=== PATIENT | male | born 1970 | race Caucasian/White ===

== ENCOUNTER 2024-05-15 19:05 | Emergency (ER) | payer MEDICARE, SELFPAY ==
[2024-05-15] VITALS (12 sets, daily range): BP systolic 81–113; BP diastolic 41–59; PULSE 83–102; RESP 15–24; TEMP 36.9–38.3; O2SAT 94–100; BMI 28.0
--- NOTE | ~2024-05-15 | CT_ITS ---
CLINICAL HISTORY: infection CT chest with contrast Comparison: None Findings: Cardiomegaly without significant pericardial effusion. Coronary artery calcifications. The visualized thyroid and mediastinum are unremarkable. Gynecomastia. Mild emphysema. Bilateral atelectasis with more ill-defined regions of ground-glass attenuation more so along the dependent lungs, left more than right. Trace bilateral effusions. Hepatomegaly with steatosis and cirrhosis. Partially imaged splenomegaly. Nonspecific ill-defined low-density region along the lateral spleen. If clinical concern persists consider follow-up MRI. Osteopenia with diffuse multilevel spondylosis. Chronic appearing multilevel mild superior endplate height loss. No retropulsion. Multilevel Schmorl's nodes. Ascites. IMPRESSION: 1. Mild emphysema. 2. Bilateral atelectasis with more ill-defined regions of ground-glass attenuation more so along the dependent lungs, left more than right. Developing pneumonia not excluded. Attention on follow-up. 3. Trace bilateral effusions. 4. Additional findings as described. This document has been electronically signed by: Juan Hawk MD on 05/16/2024 00:20:15
--- NOTE | ~2024-05-15 | XR_ITS ---
CLINICAL HISTORY: infection,trivedi bite 3 view right foot Comparison: None Findings: No fractures or dislocations. No erosive or resorptive bony changes to suggest acute osteomyelitis. Mild arthritic changes. No ankle effusion. Soft tissue swelling in the great toe. Punctate radiodensity in the superficial distal soft tissues. Tiny calcaneal spurs. IMPRESSION: 1. No acute bony or joint space abnormality. 2. Questionable superficial tiny foreign body in the soft tissues of the distal phalanx of the great toe. This document has been electronically signed by: Olive Ontiveros DO on 05/15/2024 20:59:57
--- NOTE | ~2024-05-15 | XR_ITS ---
CLINICAL HISTORY: cough 1 view chest x-ray Comparison: None Findings: No consolidation, pleural effusion or pneumothorax. Normal size heart. No acute fracture. IMPRESSION: 1. No acute findings. This document has been electronically signed by: Olive Ontiveros DO on 05/15/2024 20:53:50
--- NOTE | ~2024-05-15 | XR_ITS ---
CLINICAL HISTORY: infection 3 view left foot Comparison: None Findings: Bones intact. No dislocations. No erosive or resorptive bony changes to suggest acute osteomyelitis. Normal variant medial hallux sesamoid. Mild arthritic changes. There is an ankle effusion. No radiopaque foreign body. Diffuse soft tissue swelling. No suspicious soft tissue lucency. IMPRESSION: No acute bony or joint space abnormality. This document has been electronically signed by: Olive Ontiveros DO on 05/15/2024 20:57:14
--- NOTE | 2024-05-15 19:17 | ECG_ITS ---
Test Reason : TACARDYA Blood Pressure : */* mmHG Vent. Rate : 97 BPM Atrial Rate : 97 BPM P-R Int : 110 ms QRS Dur : 64 ms QT Int : 336 ms P-R-T Axes : 45 61 50 degrees QTcB Int : 426 ms Sinus rhythm with short MA with Premature supraventricular complexes Otherwise normal ECG No previous ECGs available Referred By: Denise Cherry Electronically Signed By: Clyde Bruno
--- NOTE | 2024-05-15 19:19 | ED.GENADULT ---
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 Patient states he has had cough and cold symptoms x3 days. Denies nausea vomiting diarrhea or abdominal pain. Related Data Allergies Allergy/AdvReac Type Severity Reaction Status Date / Time Penicillins Allergy urticaria Verified 05/15/24 19:23 Review of Systems Review of Systems: Yes all other systems are reviewed and are negative Constitutional: Constitutional: Reports fatigue, Reports fever(s) and Reports malaise Cardiovascular: Cardiovascular: Denies chest pain and Reports dyspnea Respiratory: Respiratory: Reports chest congestion, Reports cough, Reports dyspnea and Reports wheezing Gastrointestinal: Gastrointestinal: Denies abdominal pain, Denies diarrhea, Denies nausea and Denies vomiting Endocrine: Endocrine: Reports fatigue Allergic/Immunologic: Allergic/Immunologic: Reports wheezing PMFSH Past Medical History Attestation statement: The following information was validated with the patient. Social History Social History Advance Directives: No Advance Directives Information Provided: Yes Physical Exam ED Vital Signs: Vital Signs - 24 hr 05/15/24 19:19 05/15/24 19:45 05/15/24 19:51 Temperature 101.0 F H 100.9 F H Pulse Rate 96 92 95 Respiratory Rate 16 18 15 Blood Pressure 111/59 L 110/55 L Pulse Oximetry 97 98 Oxygen Delivery Method Room Air Room Air Oxygen Flow Rate 05/15/24 20:05 05/15/24 20:28 05/15/24 21:03 Temperature 99.1 F Pulse Rate 94 93 Respiratory Rate 22 H 24 H Blood Pressure 84/41 L 97/58 L 90/50 L Pulse Oximetry 98 94 Oxygen Delivery Method Room Air Nasal Cannula Oxygen Flow Rate 05/15/24 21:16 05/15/24 21:32 05/15/24 21:48 Temperature 98.7 F 98.7 F 98.4 F Pulse Rate 89 93 86 Respiratory Rate 20 22 H 21 H Blood Pressure 89/49 L 113/58 L 99/59 L Pulse Oximetry 98 96 100 Oxygen Delivery Method Nasal Cannula Nasal Cannula Nasal Cannula Oxygen Flow Rate 2 2 05/15/24 22:07 05/15/24 22:44 05/16/24 00:27 Temperature 98.4 F 98.6 F Pulse Rate 88 83 76 Respiratory Rate 18 18 16 Blood Pressure 101/59 L 106/58 L 83/51 L Pulse Oximetry 97 96 94 Oxygen Delivery Method Nasal Cannula Nasal Cannula Room Air Oxygen Flow Rate 2 2 05/16/24 01:00 05/16/24 01:29 05/16/24 03:00 Temperature 97.7 F Pulse Rate 82 80 78 Respiratory Rate 18 16 24 H Blood Pressure 100/49 L 93/57 L 92/55 L Pulse Oximetry 98 92 97 Oxygen Delivery Method Room Air Nasal Cannula Nasal Cannula Oxygen Flow Rate 2 2 05/16/24 03:04 05/16/24 03:19 05/16/24 03:34 Temperature 97.8 F Pulse Rate 73 75 78 Respiratory Rate 24 H 20 20 Blood Pressure 91/53 L 91/55 L 91/57 L Pulse Oximetry 98 97 97 Oxygen Delivery Method Nasal Cannula Nasal Cannula Nasal Cannula Oxygen Flow Rate 2 2 2 05/16/24 03:49 05/16/24 04:04 05/16/24 04:34 Temperature Pulse Rate 81 82 80 Respiratory Rate 20 19 17 Blood Pressure 94/55 L 93/61 101/57 L Pulse Oximetry 95 95 97 Oxygen Delivery Method Nasal Cannula Nasal Cannula Nasal Cannula Oxygen Flow Rate 2 2 2 05/16/24 05:06 05/16/24 05:24 05/16/24 05:34 Temperature 97.9 F Pulse Rate 80 79 82 Respiratory Rate 20 17 17 Blood Pressure 87/48 L 85/50 L 89/52 L Pulse Oximetry 97 97 97 Oxygen Delivery Method Nasal Cannula Nasal Cannula Nasal Cannula Oxygen Flow Rate 2 2 2 05/16/24 05:48 05/16/24 05:54 05/16/24 06:00 Temperature 97.6 F Pulse Rate 81 82 78 Respiratory Rate 17 17 Blood Pressure 95/55 L 95/55 L 91/54 L Pulse Oximetry 97 97 Oxygen Delivery Method Nasal Cannula Nasal Cannula Oxygen Flow Rate 2 2 05/16/24 06:00 05/16/24 06:07 05/16/24 06:08 Temperature Pulse Rate 84 84 85 Respiratory Rate 19 Blood Pressure 91/54 L 80/54 L 80/54 L Pulse Oximetry 97 Oxygen Delivery Method Nasal Cannula Oxygen Flow Rate 2 05/16/24 06:12 05/16/24 06:17 05/16/24 06:23 Temperature Pulse Rate 66 83 77 Respiratory Rate 23 H 20 20 Blood Pressure 138/64 95/63 111/65 Pulse Oximetry 98 100 99 Oxygen Delivery Method Nasal Cannula Nasal Cannula Nasal Cannula Oxygen Flow Rate 2 2 2 05/16/24 06:28 05/16/24 06:31 05/16/24 06:39 Temperature Pulse Rate 87 87 89 Respiratory Rate 20 19 20 Blood Pressure 109/69 112/67 104/60 Pulse Oximetry 99 100 97 Oxygen Delivery Method Nasal Cannula Nasal Cannula Nasal Cannula Oxygen Flow Rate 2 2 2 05/16/24 06:42 05/16/24 06:47 05/16/24 06:58 Temperature Pulse Rate 82 86 80 Respiratory Rate 19 20 20 Blood Pressure 118/68 123/64 117/68 Pulse Oximetry 97 97 96 Oxygen Delivery Method Nasal Cannula Nasal Cannula Nasal Cannula Oxygen Flow Rate 2 2 2 05/16/24 07:03 05/16/24 07:34 05/16/24 07:45 Temperature 97.7 F Pulse Rate 89 88 90 Respiratory Rate 20 20 20 Blood Pressure 113/66 114/66 122/70 Pulse Oximetry 97 97 97 Oxygen Delivery Method Nasal Cannula Nasal Cannula Nasal Cannula Oxygen Flow Rate 2 2 2 05/16/24 07:58 05/16/24 08:00 Temperature Pulse Rate 100 88 Respiratory Rate 20 16 Blood Pressure 132/60 124/68 Pulse Oximetry 98 97 Oxygen Delivery Method Nasal Cannula Nasal Cannula Oxygen Flow Rate 2 2 BMI result Body Mass Index 28.0 Const Other: Alert Orientation/consciousness: patient oriented x3 Resp Other: Tachypneic, rhonchorous on exam, faint basilar crackles Cardio Other: Normal peripheral perfusion Skin Other: Warm dry no rash Neuro General: patient oriented x3, gait normal, no focal motor deficits and CN's II-XI intact bilaterally Extrem Other: Gangrene of bilateral feet, left greater than right secondary to frostbite Psych Other: Cooperative Course Course Course Narrative: 05/16/24 11:40 Received call from lab that 1/2 sets of blood cultures positive for gram + cocci in chains. Notified RN at [facility] via telephone of results. Reevaluation(s) Reevaluation #1: Concern for sepsis ... Patient was hypotensive, febrile, coming in with cough and cold symptoms and new hypoxia. In addition to screening labs blood cultures and a lactic acid we will be obtained. Giving weight based IV fluid, starting empiric ceftriaxone Time: 19:19 Reevaluation #2: Despite weight based IV fluid therapy, the patient's pressures remains soft, starting albumin Reevaluation #3: Pressures improved after 2 units of albumin, his map is variable, we will give an additional 2 units Additional Reevaluation(s): He is maintaining pressures within the 90s, with maps above 65, he can be admitted he does not require transfer... He is up and ambulatory now, Consultations Consultation #1: DR. Daugherty's note: patient is AAO x3 require Levophed IV drip blood pressure has been stable on Levophed, no ICU bed available at [facility], case discussed with Dr. Cain at [facility] accepted the patient to ICU. Time: 06:54 Medications Administered Generic Name Dose Route Start Last Admin Trade Name Freq PRN Reason Stop Dose Admin Norepinephrine Bitartrate 8 mg in 250 mls @ 0 mls/hr 05/16/24 05:30 05/16/24 06:08 Levophed IVCONT 0.11 mcg/kg/min .Q0M KRYS 15.74 mls/hr Titration Protocol Per Protocol Discontinued Medications Generic Name Dose Route Start Last Admin Trade Name Freq PRN Reason Stop Dose Admin Ceftriaxone Sodium 2 gm 05/15/24 19:17 05/15/24 19:35 Ceftriaxone Sodium 2 Gm Vial IVPUSH 05/15/24 19:18 2 gm ONCE ONE Administration Albuterol Sulfate 2.5 mg/ 0 mg 05/15/24 19:49 05/15/24 19:51 Albuterol/Ipratropium 3 ml INHALE 05/15/24 19:50 1 dose ONCE ONE Administration Sodium Chloride 1,000 mls @ 999 mls/hr 05/15/24 19:30 05/15/24 20:35 Ns IV 05/15/24 20:30 Infused .Q1H1M KRYS Infusion Azithromycin 500 mg/ Sodium 250 mls @ 125 mls/hr 05/15/24 19:31 05/15/24 22:00 Chloride IV 05/15/24 21:30 Infused ONCE ONE Infusion Sodium Chloride 1,000 mls @ 999 mls/hr 05/15/24 20:30 05/15/24 21:16 Ns IV 05/15/24 21:30 Infused .Q1H1M KRYS Infusion Lactated Ringer's 1,000 mls @ 999 mls/hr 05/15/24 20:45 05/15/24 21:16 Lr IV 05/15/24 21:45 Infused .Q1H1M KRYS Infusion Albumin Human 100 mls @ 133.333 mls/hr 05/15/24 23:45 05/16/24 01:18 Kedbumin 25 % IV 05/16/24 01:29 Infused Q1H KRYS Infusion Albumin Human 100 mls @ 133.333 mls/hr 05/16/24 01:45 05/16/24 04:14 Kedbumin 25 % IV 05/16/24 03:29 Infused Q1H KRYS Infusion Iohexol 65 ml 05/15/24 23:35 05/15/24 23:35 Iohexol 350 Mg/Ml 100 Ml Infus..Btl IV 05/15/24 23:36 65 ml ONCE ONE Administration Ketorolac Tromethamine 15 mg 05/15/24 19:21 05/15/24 19:35 Ketorolac Tromethamine 15 Mg/Ml Vial IVPUSH 05/15/24 19:22 15 mg ONCE ONE Administration Methylprednisolone Sodium Succinate 125 mg 05/15/24 19:28 05/15/24 19:47 Methylprednisolone Sod Succ 125 Mg/2 Ml Vial IVPUSH 05/15/24 19:29 125 mg ONCE ONE Administration Medical Decision Making Medical Decision Making MDM Narrative: 53-year-old male with a history of depression, schizophrenia, 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 Patient states he has had cough and cold symptoms x3 days. Denies nausea vomiting diarrhea or abdominal pain. Problem: Cirrhosis, psychiatric illness History: Per patient I have considered the following differential diagnoses: Sepsis, osteomyelitis, UTI, bronchitis, pneumonia, SBP Plan:Concern for sepsis ... Patient was hypotensive, febrile, coming in with cough and cold symptoms and new hypoxia. In addition to screening labs blood cultures and a lactic acid we will be obtained. Giving weight based IV fluid, starting empiric ceftriaxone. I do believe respiratory pathology we will be the cause for his sepsis, given new hypoxia nature of his exam. We will still screened for other sources, including the feet. We will obtain x-rays. Thought about SBP, however the patient does not have any abdominal pain, no active GI symptoms. labs: No leukocytosis, left shift noted, not anemic, sodium low at 127, bicarb low at 20, lactic is 2.8, repeat lactic is 1.4, viral panel negative, urine not infected CXR: Findings: No consolidation, pleural effusion or pneumothorax. Normal size heart. No acute fracture. IMPRESSION: 1. No acute findings. This document has been electronically signed by: Olive Ontiveros DO on 05/15/2024 20:53:50 L foot: MPRESSION: No acute bony or joint space abnormality. This document has been electronically signed by: Olive Ontiveros DO on 05/15/2024 20:57:14 R foot: MPRESSION: 1. No acute bony or joint space abnormality. 2. Questionable superficial tiny foreign body in the soft tissues of the distal phalanx of the great toe. This document has been electronically signed by: Olive Ontiveros DO on 05/15/2024 20:59:57 CT chest: IMPRESSION: 1. Mild emphysema. 2. Bilateral atelectasis with more ill-defined regions of ground-glass attenuation more so along the dependent lungs, left more than right. Developing pneumonia not excluded. Attention on follow-up. 3. Trace bilateral effusions. 4. Additional findings as described. This document has been electronically signed by: Juan Hawk MD on 05/16/2024 00:20:15 Lab Data 05/15/24 19:31 05/15/24 19:31 Labs: Lab Results 05/15/24 05/15/24 05/15/24 Range/Units 19:31 19:40 19:46 WBC 9.1 (4.8-10.8) X10*3/uL RBC 3.53 L (4.60-5.80) X10*6/uL Hgb 10.6 L (14.0-18.0) g/dl Hct 30.1 L (42.0-52.0) % MCV 85.3 (80.0-98.0) fL MCH 30.0 (27.0-33.0) pg MCHC 35.2 (31.0-36.0) g/dl RDW 13.8 (11.0-16.0) % Plt Count 121 L (160-400) X10*3/uL MPV 9.9 (9.4-12.4) fL Immature Gran % (Auto) 1.1 H (0.0-0.4) % Neut % (Auto) 89.7 H (45-73) % Lymph % (Auto) 3.4 L (20-40) % Taylor % (Auto) 5.7 (2-11) % Eos % (Auto) 0.0 (0-4) % Baso % (Auto) 0.1 (0-2) % Lymph # (Auto) 0.3 L (1.2-4.9) X10*3/uL Taylor # (Auto) 0.5 (0.1-1.2) X10*3/uL Eos # (Auto) 0.0 (0.0-0.4) X10*3/uL Baso # (Auto) 0.0 (0.0-0.2) X10*3/uL Abs Immat Gran (auto) 0.10 H (0.00-0.03) X10*3/uL Absolute Neuts (auto) 8.2 (2.0-8.3) x10*3/uL Absolute Nucleated RBC 0.000 (0.0-0.012) X10*3/uL Nucleated RBC % (auto) 0.0 (0.0-0.2) /100WBC VBG pH 7.40 (7.32-7.43) VBG pCO2 32 mmHg VBG pO2 30 mmHg VBG HCO3 20 L (22-26) mmol/L VBG O2 Saturation 45.0 % VBG Base Excess -3.3 mmol/L Sodium 127 L (135-145) mmol/L Potassium 4.0 (3.3-5.1) mmol/L Chloride 98 (96-108) mmol/L Carbon Dioxide 20 L (22-29) mmol/L Anion Gap 13 (12-20) BUN 19 H (9-16) mg/dL Creatinine 0.98 (0.5-1.4) mg/dL Estim Creat Clear Calc 82.1 Estimated GFR > 60 Random Glucose 138 H (60-115) mg/dL Lactic Acid 2.8 H* (0.5-2.0) mmol/L Lactic Acid F/U @ 2Hr (0.5-2.0) mmol/L Calcium 8.6 (8.4-10.2) mg/dL Magnesium 2.0 (1.6-2.6) mg/dL Total Bilirubin 0.6 (0.0-1.0) mg/dL AST 50 H (5-37) U/L ALT 46 H (0-40) U/L Alkaline Phosphatase 153 H (39-117) U/L Total Protein 6.5 (6.5-8.0) g/dL Albumin 3.4 L (3.5-5.0) g/dL Lipase 44 (8-78) U/L Urine Color Yellow Urine Appearance Clear Urine pH 6.0 (5.0-9.0) Ur Specific Troy 1.010 (1.005-1.025) Urine Protein Negative (Neg-Trace) mg/dL Urine Glucose (UA) Negative (Negative) mg/dL Urine Ketones Negative (Negative) mg/dL Urine Blood Negative (Negative) Urine Nitrite Negative (Negative) Ur Leukocyte Esterase Negative (Negative) Influenza Type A (PCR) NEGATIVE (Negative) Influenza Type B (PCR) NEGATIVE (Negative) RSV RNA Qual (PCR) NEGATIVE (Negative) SARS-CoV-2 RNA (RT-PCR) NEGATIVE (Negative) 05/15/24 Range/Units 21:45 WBC (4.8-10.8) X10*3/uL RBC (4.60-5.80) X10*6/uL Hgb (14.0-18.0) g/dl Hct (42.0-52.0) % MCV (80.0-98.0) fL MCH (27.0-33.0) pg MCHC (31.0-36.0) g/dl RDW (11.0-16.0) % Plt Count (160-400) X10*3/uL MPV (9.4-12.4) fL Immature Gran % (Auto) (0.0-0.4) % Neut % (Auto) (45-73) % Lymph % (Auto) (20-40) % Taylor % (Auto) (2-11) % Eos % (Auto) (0-4) % Baso % (Auto) (0-2) % Lymph # (Auto) (1.2-4.9) X10*3/uL Taylor # (Auto) (0.1-1.2) X10*3/uL Eos # (Auto) (0.0-0.4) X10*3/uL Baso # (Auto) (0.0-0.2) X10*3/uL Abs Immat Gran (auto) (0.00-0.03) X10*3/uL Absolute Neuts (auto) (2.0-8.3) x10*3/uL Absolute Nucleated RBC (0.0-0.012) X10*3/uL Nucleated RBC % (auto) (0.0-0.2) /100WBC VBG pH (7.32-7.43) VBG pCO2 mmHg VBG pO2 mmHg VBG HCO3 (22-26) mmol/L VBG O2 Saturation % VBG Base Excess mmol/L Sodium (135-145) mmol/L Potassium (3.3-5.1) mmol/L Chloride (96-108) mmol/L Carbon Dioxide (22-29) mmol/L Anion Gap (12-20) BUN (9-16) mg/dL Creatinine (0.5-1.4) mg/dL Estim Creat Clear Calc Estimated GFR Random Glucose (60-115) mg/dL Lactic Acid (0.5-2.0) mmol/L Lactic Acid F/U @ 2Hr 1.4 (0.5-2.0) mmol/L Calcium (8.4-10.2) mg/dL Magnesium (1.6-2.6) mg/dL Total Bilirubin (0.0-1.0) mg/dL AST (5-37) U/L ALT (0-40) U/L Alkaline Phosphatase (39-117) U/L Total Protein (6.5-8.0) g/dL Albumin (3.5-5.0) g/dL Lipase (8-78) U/L Urine Color Urine Appearance Urine pH (5.0-9.0) Ur Specific Troy (1.005-1.025) Urine Protein (Neg-Trace) mg/dL Urine Glucose (UA) (Negative) mg/dL Urine Ketones (Negative) mg/dL Urine Blood (Negative) Urine Nitrite (Negative) Ur Leukocyte Esterase (Negative) Influenza Type A (PCR) (Negative) Influenza Type B (PCR) (Negative) RSV RNA Qual (PCR) (Negative) SARS-CoV-2 RNA (RT-PCR) (Negative) Critical Care Time Critical Care Time Critical Care Time: Yes Total Critical Care Time: 30 Attestation: I Denise Cherry PA-C have performed 30 minutes of critical care time not including procedure Discharge Plan Discharge Clinical Impression: Sepsis, Pneumonia, Hypoxia Patient Disposition: [facility] Transfer Details: [facility] ICU Print Language: Kazakh
[2024-05-15] MEDS: 0.9 % Sodium Chloride 1,000 ML 999 ML IV ×2 (19:27→20:36)
[2024-05-15] MEDS: Ketorolac Tromethamine 15 MG/ML VIAL IVPUSH (19:35)
[2024-05-15] MEDS: cefTRIAXone sodium 2 GM VIAL IVPUSH (19:35)
--- NOTE | 2024-05-15 19:38 | PC.NURSE ---
Per LIBRA Rodrigez okomar to give antibiotic.
[2024-05-15 19:40] LABS: MANUAL DIFF FLAG NO
[2024-05-15 19:41] LABS: PLT CLUMP 1; Red Cell Distribution Width 13.8 % (11.0-16.0); SCAN SMEAR FLAG 1
[2024-05-15 19:43] LABS: Basophils Percent Auto 0.1 % (0-2); Hematocrit 30.1 % (42.0-52.0); Hemoglobin 10.6 g/dl (14.0-18.0); Imm Gran Pct Auto 1.1 % (0.0-0.4); Lymphocytes Absolute Auto 0.3 X10*3/uL (1.2-4.9); Lymphocytes Percent Auto 3.4 % (20-40); Mean Corpuscular HGB Conc 35.2 g/dl (31.0-36.0); Mean Corpuscular Volume 85.3 fL (80.0-98.0); Mean Platelet Volume 9.9 fL (9.4-12.4); Monocytes Absolute Auto 0.5 X10*3/uL (0.1-1.2); Monocytes Percent Auto 5.7 % (2-11); Neutrophils Absolute Auto 8.2 x10*3/uL (2.0-8.3); Neutrophils Percent Auto 89.7 % (45-73); Red Blood Count 3.53 X10*6/uL (4.60-5.80)
[2024-05-15 19:45] LABS: VBG Base Excess -3.3 mmol/L; VBG HCO3 20 mmol/L (22-26); VBG pCO2 32 mmHg; VBG pO2 30 mmHg
[2024-05-15 19:46] LABS: Platelet Count 121 X10*3/uL (160-400); Venous Blood Gas Refer to POC result; White Blood Count 9.1 X10*3/uL (4.8-10.8)
[2024-05-15] MEDS: Azithromycin 500 MG in 0.9 % Sodium Chloride 250 ML 125 MG IV (19:47)
[2024-05-15] MEDS: methylPREDNISolone Sod Succ 125 MG/2 ML VIAL IVPUSH (19:47)
[2024-05-15] MEDS: Albuterol Sulfate 2.5 MG, Albuterol/Iprat 2.5/0.5MG 3 ML 3 ML INHALE (19:51)
[2024-05-15 19:52] LABS: Appearance Urine Clear; Color Urine Yellow; Glucose Urine UA Negative (Negative); Leukocyte Esterase Urine Negative (Negative); Nitrite Urine Negative (Negative); Urine Blood Negative (Negative); Urine Ketones Negative (Negative); Urine Protein Negative (Neg-Trace)
--- NOTE | 2024-05-15 19:55 | PC.NURSE ---
medicated per may, notified MASON Rodriguez
[2024-05-15 19:56] LABS: Alanine Aminotransferase 46 U/L (0-40); Albumin Level 3.4 g/dL (3.5-5.0); Alkaline Phosphatase 153 U/L (39-117); Anion Gap 13 (12-20); Aspartate Amino Transferase 50 U/L (5-37); Bilirubin Total 0.6 mg/dL (0.0-1.0); Blood Urea Nitrogen 19 mg/dL (9-16); Calcium 8.6 mg/dL (8.4-10.2); Carbon Dioxide 20 mmol/L (22-29); Chloride 98 mmol/L (96-108); Creatinine Clr Calc Pharmacy 82.1; Estimated Glomerular Filt Rate > 60; Glucose Random 138 mg/dL (60-115); Lipase 44 U/L (8-78); Sodium 127 mmol/L (135-145); Total Protein 6.5 g/dL (6.5-8.0)
[2024-05-15 20:01] LABS: Lactic Acid 2.8 mmol/L (0.5-2.0)
[2024-05-15 20:19] LABS: Influenza A PCR NEGATIVE (Negative); Influenza B PCR NEGATIVE (Negative); Resp Syncy Virus RNA Qual PCR NEGATIVE (Negative); SARS COV2 PCR INHOUSE NEGATIVE (Negative)
[2024-05-15] MEDS: Lactated Ringers 1,000 ML 999 ML IV (20:34)
--- NOTE | 2024-05-15 20:39 | PC.NURSE ---
emergent med - per Rain SMYTH give LR and NS bolus pending Pharmacy verification
[2024-05-15 21:39] LABS: Reflex Lactate? Lactic Acid Added
--- NOTE | 2024-05-15 21:51 | MHC.EDTECH ---
Patient 2nd lactic acid drawn and sent to lab ,700 ml urine empty from urinal ,Repeated vitals taken,Blood Pressure is being monitored ,Patient drank sips of antonieta francisca ,1 :1 sitter at bedside .Patient sleeping.
[2024-05-15 22:02] LABS: ~Lactic Acid-LAB USE ONLY 1.4 mmol/L (0.5-2.0)
[2024-05-15] MEDS: iohexoL 350 MG/ML 100 ML INFUS..BTL 65 ML IV (23:35)
[2024-05-15] MEDS: Albumin Human 25 % 100 ML 133.33 ML IV (23:47)
[2024-05-16] VITALS (32 sets, daily range): BP systolic 80–138; BP diastolic 48–70; PULSE 66–100; RESP 16–24; TEMP 36.4–36.6; O2SAT 92–100
[2024-05-16] MEDS: Albumin Human 25 % 100 ML 133.33 ML IV ×3 (00:30→03:28)
--- NOTE | 2024-05-16 01:00 | PC.NURSE ---
this rn assumed care of pt @ 2100. pt alert and oriented 1:[address] basilia ottoniel made aware of bp of 83/51 awaiting new orders rim fire charger operator made aware
--- NOTE | 2024-05-16 02:07 | PC.NURSE ---
pt pending admission 1:[address] pt medicated according to [place]
--- NOTE | 2024-05-16 03:00 | MHC.EDTECH ---
This tech took over care of pt at 0300 am, patient is resting quietly, BP is low, RN/provider are aware, T/W will remain at bedside as the 1:1 sitter for safety
--- NOTE | 2024-05-16 03:30 | MHC.EDTECH ---
Patient urinated 300MLS in urinal,(yellow in color)
--- NOTE | 2024-05-16 04:20 | PC.NURSE ---
pt alert and oriented answering questions appropriately. 1:[address] pt pending admission pt up to commode at bedside with pediatric clinical dietician
--- NOTE | 2024-05-16 04:30 | MHC.EDTECH ---
Patient got up to commode w a 1/assist, patient moved his bowels had a medium amount of soft brown stool, patient urinated a moderate amount
--- NOTE | 2024-05-16 05:14 | PC.NURSE ---
basilia ottoniel made aware of bp 87/48. no new orders at this time
[2024-05-16] MEDS: Norepinephrine Bitartrate/D5W 8 MG/250 ML PLAST..BAG 7.15 MG IVCONT (05:54)
--- NOTE | 2024-05-16 05:57 | PC.NURSE ---
norepi initiated at this time pt denies pain pt a&o 1:[address]
--- NOTE | 2024-05-16 06:32 | PM.EVENT ---
Event Note Date of Service: 05/16/24 Event Note: Was asked to evaluate the patient for possible admission. Blood pressure with systolic in the 80s at the time of my evaluation with maps in the 50s after IV crystalloid and colloid resuscitation. Conveyed to ER provider and patient has been initiated on Levophed. Time Spent With Patient Time: Total time managing care of this patient today ____ minutes.
--- NOTE | 2024-05-16 07:37 | MHC.EDTECH ---
Report taken from brittany Martin. Patient appears to be resting comfortably at this time requested warm blanket for his feet.
--- NOTE | 2024-05-16 08:24 | PC.NURSE ---
assumed care of patient at 0700, patient on levophed gtt 0.11mcg/kg. patient is awake and alert, vitals stable at this time. report called into [facility] ICU, report given to critical transport team.
[2024-05-17 06:53] VITALS: BP 124/68; PULSE 88; RESP 16; TEMP 36.5; O2SAT 97
== END 2024-05-16 08:28 | disposition short-term general hospital (02) ==
PROVIDERS: Physician Assistant Medical; Emergency Provider Emergency Medicine
DX: A41.89 Other specified sepsis (principal); J18.9 Pneumonia, unspecified organism; R09.02 Hypoxemia; R50.9 Fever, unspecified; R05.9 Cough, unspecified; Z03.818 Encounter for observation for suspected exposure to other biological agents ruled out
CPT/HCPCS: 0241U; 71045; 71260; 73630; 80053; 81003; 82803; 83605; 83690; 83735; 85025; 87040; 87077; 87147; 87186; 87205; 93005; 94640; 96361; 96365; 96366; 96367; 96375; 99285; J0456; J0696; J1885; J2919; J7120; P9047; Q9967

== ENCOUNTER → 2024-05-15 19:17 | Outpatient (BNV) | payer MEDICARE, SELFPAY | PROVIDERS: Emergency Provider Emergency Medicine; Visit Provider Internal Medicine Cardiovascular Disease | DX: I49.1 Atrial premature depolarization (principal); I45.6 Pre-excitation syndrome | CPT/HCPCS: 93010 ==

== ENCOUNTER → 2024-05-15 19:17 | Outpatient (BNV) | payer MEDICARE, SELFPAY | PROVIDERS: Emergency Provider Emergency Medicine; Visit Provider Radiology Diagnostic Radiology | DX: J90 Pleural effusion, not elsewhere classified (principal) | CPT/HCPCS: 71045; 71260; 73630 ==